=== PATIENT | female | born 1990 ===

== ENCOUNTER 2017-03-03 04:28 | Emergency (ER) | payer SELFPAY ==
[2017-03-03 06:29] VITALS: BP 118/78; PULSE 88; RESP 16; O2SAT 97
== END 2017-03-03 06:00 | disposition home or self-care (01) ==
LOC: C.ER 04:28
DX: K01.1 Impacted teeth (principal); K02.9 Dental caries, unspecified

== ENCOUNTER 2017-09-03 10:47 | Emergency (ER) | payer BC, OTHER ==
[2017-09-03 11:14] VITALS: BP 105/68; PULSE 78; RESP 16; TEMP 98.4; O2SAT 100
[2017-09-03] MEDS ORDERED: Naproxen 550 mg Tab PO STA (11:43)
[2017-09-03 12:03] LABS: HCG,QUALITATIVE URINE NEGATIVE (NEGATIVE)
[2017-09-03] MEDS ORDERED: Naproxen 550 mg Tab PO ONE (12:06)
--- NOTE | 2017-09-03 12:08 | C.PDOC ---
History Of Present Illness 26 yr old female presents to the ER with complaints of bilateral back pain, left >right for the past 2-3 weeks. Patient states the pain is made worse with movement, but has not tired any pain medications. Denies recent falls or injuries, nausea, vomiting, abdominal pain, diarrhea, constipation, dysuria, hematuria, weakness or numbness. Time Seen by Provider: 09/03/17 11:26 Chief Complaint (Nursing): Flu-like Symptoms History Per: Patient History/Exam Limitations: no limitations Onset/Duration Of Symptoms: Days (2-3 weeks) Current Symptoms Are (Timing): Still Present Past Medical History Reviewed: Historical Data, Nursing Documentation, Vital Signs Vital Signs: Last Vital Signs Temp 98.4 F 09/03/17 11:12 Pulse 78 09/03/17 11:12 Resp 16 09/03/17 11:12 BP 105/68 09/03/17 11:12 Pulse Ox 100 09/03/17 12:14 Family History: States: No Known Family Hx - Social History Hx Tobacco Use: No (DENIED) Hx Alcohol Use: Yes (DENIED) Hx Substance Use: No - Immunization History Hx Tetanus Toxoid Vaccination: No Hx Influenza Vaccination: Yes Hx Pneumococcal Vaccination: No Review Of Systems Except As Marked, All Systems Reviewed And Found Negative. Gastrointestinal: Negative for: Nausea, Vomiting, Abdominal Pain, Diarrhea, Constipation Genitourinary: Negative for: Dysuria, Hematuria Musculoskeletal: Positive for: Back Pain (bilateral back pain, left>right) Neurological: Negative for: Weakness, Numbness Physical Exam - Physical Exam Appears: Non-toxic, No Acute Distress Skin: Warm, Dry, No Rash Head: Normacephalic Oral Mucosa: Moist Neck: Normal, Normal ROM, No Midline Cervical Tenderness, Supple Cardiovascular: Rhythm Regular, No Murmur Respiratory: Normal Breath Sounds, No Rales, No Rhonchi, No Stridor, No Wheezing Gastrointestinal/Abdominal: Normal Exam, Soft, No Tenderness, No Guarding, No Rebound Back: No CVA Tenderness, Other ((+) upper lumbar and lower thoracic spinal tenderness) Extremity: Normal ROM, No Swelling Neurological/Psych: Oriented x3, Normal Speech, Normal Motor ED Course And Treatment O2 Sat by Pulse Oximetry: 100 (RA) Pulse Ox Interpretation: Normal Progress Note: PLAN: HCG, Urinalysis, Naproxen PO, Flexeril PO & Re-eval. Disposition Counseled Patient/Family Regarding: Diagnosis, Need For Followup, Rx Given - Disposition Referrals: [facility] [Outside] Disposition: HOME/ ROUTINE Disposition Time: 13:25 Condition: STABLE Prescriptions: Cyclobenzaprine [Flexeril] 10 mg PO BID PRN #15 tab PRN Reason: Muscle Spasm Naproxen 375 mg PO BID PRN #20 tablet PRN Reason: pain Instructions: Back Pain (ED) Forms: [employer] (Bahamian), Work Excuse Print Language: GUAMANIAN - POA Present On Arrival: None - Clinical Impression Clinical Impression: Back pain - Scribe Statement The provider has reviewed the documentation as recorded by the Tayeibe Nikky Hicks Provider Attestation: All medical record entries made by the Tayeibcherelle were at my direction and personally dictated by me. I have reviewed the chart and agree that the record accurately reflects my personal performance of the history, physical exam, medical decision making, and the department course for this patient. I have also personally directed, reviewed, and agree with the discharge instructions and disposition.
[2017-09-03 12:11] LABS: SQUAMOUS EPITHIAL 2 /hpf (0-5); URINE BACTERIA OCC (<OCC); URINE BILIRUBIN NEGATIVE (NEGATIVE); URINE BLOOD 1+ (NEGATIVE); URINE CLARITY Clear (Clear); URINE COLOR Yellow (YELLOW); URINE GLUCOSE (UA) NORMAL (Normal); URINE LEUKOCYTE ESTERASE NEG Leu/uL (Negative); URINE NITRATE NEGATIVE (NEGATIVE); URINE PROTEIN NEGATIVE (NEGATIVE); URINE UROBILINOGEN NORMAL mg/dL (0.2-1.0)
== END 2017-09-03 13:38 | disposition home or self-care (01) ==
LOC: C.ER 10:47
DX: M54.9 Dorsalgia, unspecified (principal)

== ENCOUNTER 2018-08-09 06:23 | Emergency (ER) | payer BC, OTHER ==
[2018-08-09 06:53] VITALS: O2SAT 98
[2018-08-09] MEDS ORDERED: Epinephrine /Lidocaine HCL 1:100,000/2% 30 ml INJ STA (07:23)
[2018-08-09] MEDS ORDERED: Bacitracin 500 Units/gm Oint Foilpak UD TOP ONE (07:23)
[2018-08-09] MEDS ORDERED: Bacitracin 500 Units/gm Oint Foilpak UD ONE (07:48)
--- NOTE | 2018-08-09 08:27 | C.PDOC ---
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 Patient states that she cut her hand on glass. Of note, HPI is limited. Patient is poor historian secondary to intoxication. Time Seen by Provider: 08/09/18 07:08 Chief Complaint (Nursing): Abnormal Skin Integrity History Per: Patient History/Exam Limitations: intoxication Onset/Duration Of Symptoms: Hrs Current Symptoms Are (Timing): Still Present Severity: Moderate Past Medical History Reviewed: Historical Data, Nursing Documentation, Vital Signs Vital Signs: Last Vital Signs Temp 98.7 F 08/09/18 06:37 Pulse 110 H 08/09/18 06:37 Resp 20 08/09/18 06:37 BP 107/71 08/09/18 06:37 Pulse Ox 98 08/09/18 06:37 - Medical History PMH: No Chronic Diseases Surgical History: No Surg Hx Family History: States: No Known Family Hx - Social History Hx Tobacco Use: No (DENIED) Hx Alcohol Use: Yes Hx Substance Use: No - Immunization History Hx Tetanus Toxoid Vaccination: No Hx Influenza Vaccination: Yes Hx Pneumococcal Vaccination: No Review Of Systems Review Of Systems: ROS cannot be obtained secondary to pt's inabilty to answer questions. Physical Exam - Physical Exam Appears: No Acute Distress Skin: Normal Color, Warm, Dry, Other (3 cm laceration to volar aspect over 4th and 5th metacarpals of right hand) Head: Atraumatic, Normacephalic Eye(s): bilateral: Normal Inspection Nose: Normal Oral Mucosa: Moist Tongue: Normal Appearing, No Swelling Throat: No Erythema, No Exudate Neck: Normal ROM, Supple Chest: Symmetrical Cardiovascular: Rhythm Regular, No Friction Rub, No Murmur Respiratory: Normal Breath Sounds, No Rales, No Rhonchi, No Wheezing Back: Normal Inspection, No CVA Tenderness Extremity: Normal ROM, No Swelling Neurological/Psych: Oriented x3, Normal Speech, Normal Motor, Other (no focal deficits) Gait: Steady ED Course And Treatment O2 Sat by Pulse Oximetry: 98 (RA) Pulse Ox Interpretation: Normal Progress Note: Patient was observed for Sobriety and was discharged home in friends custody. On re-exam, the patient had normal speech, tolerating PO well, and ambulatory in the ED with steady gait. Laceration - Laceration Repair Right Hand Wound Length (In cm): 3 cm Description Of Wound: Linear Wound Cleansed With: Betadine, Sterile Saline Anesthesia: Lidocaine 2%, With Epi Wound Examination: Irrigated With Saline, No FB With Wound Exploration Wound Closure: Suture Suture Technique And Material Used: Nylon (3 ( 4-0) Nylon), Vicryl (2 (4-0) Vicryl) Wound Complexity: Simple Medical Decision Making Medical Decision Making: Plan: --X-Ray-Right Hand --Laceration Repair Updates: Xrays shows that there may be foreign body in the hand. The wound was irrigated with >1000 cc of sterile saline and betadine. Wound explored for foreign body and washed out. Tetanus is up to date. Patient was instructed that there still may be fragments of the glass still in the wound. To follow up outpatient for wound check in 2 days, Disposition - Disposition Referrals: [facility] [Outside] Minnie Early MD [Staff Provider] - Disposition: HOME/ ROUTINE Disposition Time: 09:55 Condition: STABLE Additional Instructions: Keep the wound clean and dry for 2 days. On open the dressing and wash the wound with soap and water only Then apply the bacitracin. Sutures to be removed within 10-14 days (2018). Return if worsened. Prescriptions: Bacitracin Ointment [Bacitracin] 30 gm TOP BID #1 tube Cephalexin [Keflex] 500 mg PO BID #10 capsule Instructions: Laceration Repair Forms: [facility] (Tanzanian) - Clinical Impression Clinical Impression: Laceration of hand - PA / [employer] / Resident Statement MD/DO has reviewed & agrees with the documentation as recorded. - Scribe Statement The provider has reviewed the documentation as recorded by the Scribe [facility] Provider Attestation All medical record entries made by the Scribe were at my direction and personally dictated by me. I have reviewed the chart and agree that the record accurately reflects my personal performance of the history, physical exam, medical decision making, and the department course for this patient. I have also personally directed, reviewed, and agree with the discharge instructions and disposition.
[2018-08-09 10:02] VITALS: BP 110/84; PULSE 86; RESP 16; TEMP 98.2
--- NOTE | 2018-08-09 11:04 | RAD ---
PROCEDURE: Left hand Radiographs. HISTORY: lac from glass r/o foreign body COMPARISON: None available. FINDINGS: BONES: No acute displaced fracture. JOINTS: No dislocation. SOFT TISSUES: Soft tissue swelling/laceration evident at the level of the medial 5th digit at the carpal/metacarpal level. 3 mm hyperdensity at this level may represent small foreign body (glass). OTHER FINDINGS: None. IMPRESSION: Soft tissue swelling/laceration evident at the level of the medial 5th digit at the carpal/metacarpal level. 3 mm hyperdensity at this level may represent small foreign body (glass). Study marked for PA review.
== END 2018-08-09 10:01 | disposition home or self-care (01) ==
LOC: C.ER 06:23
DX: S61.411A Laceration without foreign body of right hand, initial encounter (principal); W25.XXXA Contact with sharp glass, initial encounter

== ENCOUNTER 2018-08-21 13:48 | Emergency (ER) | payer BC ==
[2018-08-21 14:00] VITALS: BP 116/79; PULSE 80; RESP 18; TEMP 98.5; O2SAT 100
--- NOTE | 2018-08-21 14:28 | C.PDOC ---
History Of Present Illness 27 year old female presents to the emergency department for suture removal. Patient had sutures placed in the palm of her left hand 13 days ago. Patient states that the suture is healing well and she has not had any difficulties or complications. Time Seen by Provider: 08/21/18 14:08 Chief Complaint (Nursing): Suture/Staple Removal History Per: Patient History/Exam Limitations: no limitations Onset/Duration Of Symptoms: Days Ago (13) Current Symptoms Are (Timing): Better Location Of Injury: Left: Hand Quality Of Symptoms: Other (laceration) Past Medical History Reviewed: Historical Data, Nursing Documentation, Vital Signs Vital Signs: Last Vital Signs Temp 98.5 F 08/21/18 13:58 Pulse 80 08/21/18 13:58 Resp 18 08/21/18 13:58 BP 116/79 08/21/18 13:58 Pulse Ox 100 08/21/18 13:58 - Medical History PMH: No Chronic Diseases Family History: States: Unknown Family Hx - Social History Hx Tobacco Use: No (DENIED) Hx Alcohol Use: Yes Hx Substance Use: No - Immunization History Hx Tetanus Toxoid Vaccination: No Hx Influenza Vaccination: Yes Hx Pneumococcal Vaccination: No Review Of Systems Except As Marked, All Systems Reviewed And Found Negative. Skin: Positive for: Other (healed laceration) Physical Exam - Physical Exam Appears: Non-toxic, No Acute Distress Skin: Normal Color, Warm, Dry Head: Atraumatic, Normacephalic Eye(s): bilateral: Normal Inspection, PERRL, EOMI Neck: Normal, Supple Extremity: Normal ROM (left hand), Other (healing laceration present to the palmar aspect of the left hand. [address] ) Neurological/Psych: Oriented x3, Normal Speech, Normal Cognition ED Course And Treatment O2 Sat by Pulse Oximetry: 100 (RA) Pulse Ox Interpretation: Normal Medical Decision Making Medical Decision Making: Assessment: Suture removal 6 sutures removed from left palm without difficulty. Patient tolerated the procedure well. Disposition - Disposition Disposition: HOME/ ROUTINE Disposition Time: 14:27 Condition: STABLE Additional Instructions: follow up with your doctor within 2 days call to make an appointment return to ER if symptoms worsens or progress Instructions: Stitches Removal Forms: [facility] (Turkish), General Discharge Instructions - Clinical Impression Clinical Impression: Removal of suture - Scribe Statement The provider has reviewed the documentation as recorded by the Scribe (Alexx Uribe) Provider Attestation: All medical record entries made by the Scribe were at my direction and personally dictated by me. I have reviewed the chart and agree that the record accurately reflects my personal performance of the history, physical exam, medical decision making, and the department course for this patient. I have also personally directed, reviewed, and agree with the discharge instructions and disposition.
== END 2018-08-21 14:43 | disposition home or self-care (01) ==
LOC: C.ER 13:48
DX: Z48.02 Encounter for removal of sutures (principal)